=== PATIENT | male | born 1935 | race Caucasian/White ===

== ENCOUNTER 2021-08-06 09:58 | Outpatient (REF) | payer MEDICARE, SELFPAY ==
[2021-08-06 11:12] LABS: Alanine Aminotransferase 29 U/L (0-40); Albumin Level 3.8 g/dL (3.5-5.0); Alkaline Phosphatase 64 U/L (39-117); Anion Gap 10 (12-20); Aspartate Amino Transferase 22 U/L (5-37); Bilirubin Total 0.7 mg/dL (0.0-1.0); Blood Urea Nitrogen 32 mg/dL (9-16); Carbon Dioxide 30 mmol/L (22-29); Chloride 106 mmol/L (96-108); Cholesterol 173 mg/dL; Estimated Glomerular Filt Rate 28; Glucose Fasting 94 mg/dL (60-99); HDL Cholesterol 45 mg/dL; LDL Cholesterol Calculated 120 mg/dl; Potassium 4.3 mmol/L (3.3-5.1); Sodium 142 mmol/L (135-145); Total Protein 6.8 g/dL (6.5-8.0); Triglycerides 40 mg/dL; Uric Acid 8.3 mg/dL (3.4-7.0)
[2021-08-07 21:57] LABS: NT-proBNP 777 pg/mL
== END 2021-08-06 09:59 | disposition home or self-care (01) ==
LOC: HO.LAB 09:58
PROVIDERS: PCP Internal Medicine; Visit Provider Internal Medicine
DX: M10.9 Gout, unspecified (principal); R60.0 Localized edema; I10 Essential (primary) hypertension
CPT/HCPCS: 36415; 80053; 80061; 83880; 84550

== ENCOUNTER → 2021-09-12 09:30 | Outpatient (REF) | payer OTHER, SELFPAY ==
--- NOTE | 2021-09-12 09:48 | CA_ITS ---
Transthoracic Echocardiogram Patient (Last, First, Middle): David Myers, Gender: Male Date of : 1935 Age: 86 Procedure Date: 09/12/2021 Procedure Type: Transthoracic Echocardiogram Location: OP Height: 182.88 cm Weight: 81.65 kg BSA: 2.04 m2 Heart Rate: bpm BP: 122 / 79 mmHg [employer] Agent: Referring MD: Teresita Johnson MD Officer Captain: Max Key MD Symptoms: R01.1 - Cardiac murmur, unspecified Study Quality: Fair ECG Rhythm: Sinus Conclusions: - 1. Normal LV systolic function with moderate LVH with grade 1 diastolic dysfunction with LVEF of 55-60% with possible basal and mid inferior wall hypokinesis 2. Trivial aortic regurgitation 3. [id number] enlargement of ascending aorta 5. Normal RV systolic pressure 6. No pericardial effusion Findings Left Ventricle Normal left ventricular cavity size. There is moderately increased left ventricular wall thickness. The left ventricular systolic function is normal. The visually estimated ejection fraction is between 55-60%. Spectral Doppler is indicative of an impaired relaxation filling pattern. E/E prime ratio is <8, consistent with normal filling pressures. Evidence suggests grade I (mild) diastolic dysfunction. Wall Motion Rest Echo Findings The basal inferior and mid inferior segments are hypokinetic. All other scored wall segments showed normal motion. Right Ventricle Normal right ventricular cavity size and systolic function. Atria The left atrium is likely dilated. There is no evidence of interatrial shunt. The right atrium is normal in size. Aortic Valve There is mild thickening of the aortic valve. There is no aortic valve stenosis. There is trace (trivial) aortic valve regurgitation. Mitral Valve Normal mitral valve structure and function. There is trace mitral valve regurgitation. There is no mitral valve stenosis. Pulmonic Valve The pulmonic valve was not well visualized. Tricuspid Valve Likely normal tricuspid valve structure and function. There is trace tricuspid valve regurgitation. The right ventricular systolic pressure is normal. The right ventricular systolic pressure is 23 mmHg. Normal right atrial pressure. There is no evidence of pulmonary hypertension. Great Vessels The pulmonary artery was not well visualized. There is mild dilatation of the ascending aorta measuring 4.40 cm. Venous The inferior vena cava is normal in size and collapses greater than 50% with inspiration. Pericardium/Pleural There is no evidence of pericardial effusion. Prior Study Comparison No prior study available for comparison. Measurements 2D Linear Measurements IVSd: 1.54 0.6-0.9/0.6-1.0 cm LVIDd: 3.76 3.9-5.3/4.2-5.9 cm LVIDd Index: 1.84 2.4-3.2/2.2-3.1 cm/m2 LVIDs: 2.82 2.0-3.6 cm LVPWd: 1.58 0.7-1.1 cm Ao Root: 3.60 2.1-3.5 cm LA Diam: 3.40 2.7-3.8/3.0-4.0 cm LAIDs Index: 1.67 1.5-2.3 cm/m2 LV Mass: 283.40 67-162/88-224 g LV Mass Index: 138.92 43-95/49-115 g/m2 LVOT Diam: 2.40 3.0+(-)1.3 cm 2D Systolic Function EF 4C: 54.00 >55% EF 2C: 57.20 >55% EF BiP: 54.70 >55% Mitral Valve MV Pk E: 0.40 MV PK A: 0.65 MV Decel Time: 282.00 E/A: 0.60 E'Lateral: 7.29 E'Medial: 3.92 E/E' Med: 10.30 E/E' Lat: 5.50 PHT: 83.00 MVA PHT: 2.65 Decel Stokes: 1.43 Aortic Valve AoV Pk Jimbo: 1.38 AoV Mn Jibmo: 0.89 AoV VTI: 0.34 AoV Pk Grad: 8.00 Aov Mn Grad: 4.00 TALIA Cont.VTI: 3.09 LVOT LVOT Pk Jimbo: 0.95 LVOT Mn Jimbo: 0.60 LVOT VTI: 0.23 LVOT Pk Grad: 4.00 LVOT Mn Grad: 2.00 LVOT Diam: 2.40 LVOT Area: 4.52 Diastolic Function MV Pk E: 0.40 MV Pk A: 0.65 E/A: 0.60 E'Medial: 3.92 E/E' Med: 10.30 E' Laterial: 7.29 E/E' Lat: 5.50 Tricuspid Valve TR Pk Jimbo: 2.24 TR Pk Grad: 20.00 RA Press: 3.00 RVSP: 23.00 Great Vessels Aorta Ao Root-2D: 3.60 2.0-3.7 cm Ao Asc: 4.40 2.1-3.4 cm Pulmonary Valve PV Pk Jimbo: 0.91 Peak PV Grad: 3.00 Updated in Other Vendor System with Status of Final Max Key MD electronically signed on 09/12/2021 12:16:31 PM with status of Final
== END ==
LOC: HO.CARD 09:30
PROVIDERS: PCP Internal Medicine; Visit Provider Internal Medicine
DX: R01.1 Cardiac murmur, unspecified (principal)
CPT/HCPCS: 93306